=== PATIENT | male | born 1950 | race Caucasian/White ===

== ENCOUNTER 2016-06-11 | Outpatient (CLI) | payer MEDICARE | END 2016-06-11 01:38 | disposition critical access hospital (66) | CPT/HCPCS: A0425; A0427 ==

== ENCOUNTER 2016-06-11 02:13 | Observation (INO) | payer MEDICARE ==
[2016-06-11] MEDS ORDERED: PANTOPRAZOLE 80 MG in SODIUM CHLORIDE 0.9% 100ML 100 ML IV STA ×4 (02:29)
[2016-06-11] MEDS ORDERED: SODIUM CHLORIDE 0.9% 1,000 ML IV ONE (02:29)
[2016-06-11] MEDS ORDERED: PANTOPRAZOLE 40 MG VIAL ONE ×2 (02:37→03:33)
[2016-06-11] MEDS ORDERED: ACETAMINOPHEN 325 MG TABLET PO PRN (04:12)
[2016-06-11] MEDS ORDERED: HYDROcod/ACETAM 5/325 MG TABLET PO PRN (04:12)
[2016-06-11] MEDS ORDERED: ZOLPIDEM 5 MG TABLET PO PRN (04:12)
[2016-06-11] MEDS ORDERED: SODIUM CHLORIDE FLUSH 0.9% 10 ML SYRINGE IVP PRN (04:12)
[2016-06-11] MEDS ORDERED: HYDROcod/ACETAM 10 MG/325 MG TABLET PO PRN (04:12)
[2016-06-11] MEDS ORDERED: ONDANSETRON 4 MG/2 ML VIAL IVP PRN (04:12)
[2016-06-11] MEDS: SODIUM CHLORIDE 0.9% 1,000 ML IV SCH ×3 (04:52→21:11)
[2016-06-11] MEDS: SODIUM CHLORIDE FLUSH 0.9% 10 ML SYRINGE IVP SCH ×3 (04:52→21:11)
[2016-06-11] MEDS: SUCRALFATE 1 GM/10 ML UDC PO SCH ×4 (06:11→21:11)
[2016-06-11] MEDS: POLYETHYLENE GLYCOL 3350 17 GM PACKET PO SCH (08:53)
[2016-06-11] MEDS: PANTOPRAZOLE 40 MG VIAL IVP SCH ×2 (08:53→21:11)
[2016-06-11] MEDS: LISINOPRIL 5 MG TABLET PO SCH (13:00)
[2016-06-11] MEDS: SODIUM/POTASSIUM/MAG SULFATES 354 ML PREP KIT PO SCH (18:35)
[2016-06-12] MEDS: SODIUM/POTASSIUM/MAG SULFATES 354 ML PREP KIT PO SCH (04:40)
[2016-06-12] MEDS: SODIUM CHLORIDE FLUSH 0.9% 10 ML SYRINGE IVP SCH (06:17)
[2016-06-12] MEDS: SUCRALFATE 1 GM/10 ML UDC PO SCH (06:18)
[2016-06-12] MEDS ORDERED: fentaNYL 250 MCG/5 ML VIAL IVP ONE (07:33)
[2016-06-12] MEDS ORDERED: MIDAZOLAM 2 MG/2 ML VIAL IVP ONE (07:33)
[2016-06-12] MEDS ORDERED: LACTATED RINGERS 1,000 ML IV ONE (07:33)
[2016-06-12] MEDS: SODIUM CHLORIDE 0.9% 1,000 ML IV SCH ×2 (09:45→09:50)
[2016-06-12] MEDS: PANTOPRAZOLE 40 MG VIAL IVP SCH (09:48)
[2016-06-12] MEDS: LISINOPRIL 5 MG TABLET PO SCH (09:48)
[2016-06-12] MEDS: POLYETHYLENE GLYCOL 3350 17 GM PACKET PO SCH (09:49)
== END 2016-06-12 10:54 | disposition home or self-care (01) ==
PROC: 0DBP8ZX Excision of Rectum, Via Natural or Artificial Opening Endoscopic, Diagnostic (ICD-10-PCS; 2016-06-12)
PROC: 0DBC8ZX Excision of Ileocecal Valve, Via Natural or Artificial Opening Endoscopic, Diagnostic (ICD-10-PCS; principal; 2016-06-12 07:30)
DX: K92.1 Melena (principal); E86.0 Dehydration; K57.30 Diverticulosis of large intestine without perforation or abscess without bleeding; D12.0 Benign neoplasm of cecum; K62.1 Rectal polyp; K63.9 Disease of intestine, unspecified; K64.8 Other hemorrhoids; K64.4 Residual hemorrhoidal skin tags; Q27.33 Arteriovenous malformation of digestive system vessel; I10 Essential (primary) hypertension; R73.9 Hyperglycemia, unspecified; E66.9 Obesity, unspecified; Z79.82 Long term (current) use of aspirin; Z83.3 Family history of diabetes mellitus; Z68.29 Body mass index [BMI] 29.0-29.9, adult
CPT/HCPCS: 36415; 45380; 45384; 80053; 83036; 83690; 84484; 85025; 85610; 85730; 86850; 86900; 86901; 87339; 93005; 96361; 96374; 96376; 99283; 99285; A9270; G0378; J3010; J7120

== ENCOUNTER 2016-08-20 15:11 | Outpatient (CLI) | payer MEDICARE | END 2016-08-20 15:12 | disposition home or self-care (01) | DX: I10 Essential (primary) hypertension (principal) ==

== ENCOUNTER 2016-12-04 06:41 | Day surgery (SDC) | payer MEDICARE ==
[2016-12-04] MEDS ORDERED: LACTATED RINGERS 1,000 ML IV ONE (06:52)
[2016-12-04] MEDS ORDERED: MIDAZOLAM 2 MG/2 ML VIAL IVP ONE (08:04)
[2016-12-04] MEDS ORDERED: fentaNYL 100 MCG/2 ML VIAL IVP ONE (08:04)
--- NOTE | 2016-12-04 08:06 | HISTORY & PHYSICAL EXAMINATION ---
HPI - History of Present Illness HPI Comment/Other: Visit Type: Initial Consult Primary Provider: Munir Gaona MD History of Present Illness: Patient is here today for a repeat colonoscopy, 3 months.................................................... ................Arjun Jack MA October 28, 2016 2:18 PM Gonzalo is here in follow up for colonic polyps: inflammatory appearing polyp in sigmoid and SSA in cecum during colonoscopy in June. Past Medical History: Reviewed history from 07/23/2016 and no changes required: HTN diverticular disease with bleed colon polyp sessile serrated adenoma ileocecal valve Past Surgical History: Colonoscopy 06/17 Family History Summary: Reviewed history Last on 09/24/2016 and no changes required:10/28/2016 Mother (biol.) - Has Family History of Other Diseases - Ovarian Cancer - Entered On: 10/28/2016 General Comments - FH: Mother ovarian cancer Father DM Social History: Reviewed history from 07/02/2016 and no changes required: Patient is a former smoker.Quit 1986 Alcohol Use - yes, 5 glasses wine week Drug Use - yes, ocassional cannabis use Smoking History: Patient is a former smoker. , no children Semiretired youth program director Risk Factors: Smoked Tobacco Use: Former smoker Drug use: yes Alcohol use: yes Exercise: yes Type of Exercise: Run 6 miles per day Review of Systems See HPI Vital Signs: Patient Profile: 66 Years Old Male Height: 67 inches Weight: 177.5 pounds BMI: 27.80 O2 Sat: 97 % on room air Temp: 98 degrees F temporal Pulse rate: 72 / minute Pulse rhythm: irregular Resp: 16 per minute BP sittin / 102 Vitals Entered By: Arjun Jack MA (October 28, 2016 2:20 PM) Problems were reviewed with the patient during this visit. Medications were reviewed with the patient during this visit. Allergies were reviewed with the patient during this visit. No known allergies. Physical Exam General: well developed, well nourished, in no acute distress Lungs: clear bilaterally to A & P Heart: regular rate and rhythm, S1, S2 without murmurs, rubs, gallops, or clicks Abdomen: bowel sounds positive; abdomen soft and non-tender without masses, organomegaly, or hernias noted Pulses: pulses normal in all 4 extremities Extremities: no clubbing, cyanosis, edema, or deformity noted with normal full range of motion of all joints Cervical Nodes: no significant adenopathy Psych: alert and cooperative; normal mood and affect; normal attention span and concentration Impression & Recommendations: Problem # 1: Colon polyps Will proceed with colonoscopy PMH/PSH - Past Medical History Cardiovascular: positive: Hypertension Respiratory: positive: None Neuro: positive: None Endocrine/Autoimmune: positive: None GI: positive: None : positive: None HEENT: positive: None Psych: positive: None Musculoskeletal: positive: None Derm: positive: None MRSA Hx?: No - Past Surgical History General: positive: Colonoscopy Social & Family Hx - Social History Does the pt smoke?: No Smoking Status: Former smoker Does the pt drink ETOH?: No ETOH Use: Wine Does the pt have substance abuse?: No - POLST Patient has POLST: No Meds/Allgy - Home Medications Home Medications: Ambulatory Orders Medication Instructions Recorded Confirmed Aspirin 81 mg PO QPM 06/11/16 12/04/16 Alto-3/Dha/Epa/Fish Oil [Fish Oil 1 gm PO DAILY 06/11/16 12/04/16 1,000 mg Softgel] Vitamin E (Dl,Tocopheryl Acet) 400 units PO DAILY 06/11/16 12/04/16 [Vitamin E] Lisinopril [Zestril] 40 mg PO DAILY 12/04/16 12/04/16 - Allergies Allergies/Adverse Reactions: Allergies Allergy/AdvReac Type Severity Reaction Status Date / Time No Known Drug Allergies Allergy Verified 06/11/16 02:32 Exam - Vital Signs Vital Signs: Vital Signs x48h Temp Pulse Resp BP Pulse Ox 12/04/16 06:53 36 C L 77 16 171/111 H 99
[2016-12-04 09:01] VITALS: BP 138/85
== END 2016-12-04 06:42 | disposition home or self-care (01) ==
LOC: SDS 06:41
PROVIDERS: ATTEND Surgery
PROC: 0DBC8ZX Excision of Ileocecal Valve, Via Natural or Artificial Opening Endoscopic, Diagnostic (ICD-10-PCS; principal; 2016-12-04 08:15)
DX: Z86.010 Personal history of colon polyps (principal); K57.30 Diverticulosis of large intestine without perforation or abscess without bleeding; D12.0 Benign neoplasm of cecum; K64.4 Residual hemorrhoidal skin tags; I10 Essential (primary) hypertension; Z80.41 Family history of malignant neoplasm of ovary; Z87.891 Personal history of nicotine dependence; Z79.82 Long term (current) use of aspirin
CPT/HCPCS: 45380; J7120; 88305

== ENCOUNTER 2017-06-09 08:00 | Outpatient (CLI) | payer MEDICARE ==
[2017-06-09 19:31] LABS: BASOPHILS % (AUTO) 0.5 %; EOSINOPHILS # (AUTO) 0.1 10^3/uL (0.0-0.7); EOSINOPHILS % (AUTO) 0.8 %; LYMPHOCYTES # (AUTO) 1.8 10^3/uL (1.5-3.5); LYMPHOCYTES % (AUTO) 25.3 %; MEAN CORPUSCULAR HEMOGLOBIN 30.4 pg (27.0-31.0); MEAN CORPUSCULAR HGB CONC 33.3 g/dL (32.0-36.0); MEAN CORPUSCULAR VOLUME 91.2 fL (80.0-94.0); MEAN PLATELET VOLUME 9.3 fL (7.4-11.4); MONOCYTES # (AUTO) 0.5 10^3/uL (0.0-1.0); MONOCYTES % (AUTO) 6.7 %; NEUTROPHILS # (AUTO) 4.6 10^3/uL (1.5-6.6); NEUTROPHILS % (AUTO) 66.7 %; PLT - PLATELET COUNT 224 10^3/uL (130-450); RED BLOOD COUNT 5.26 10^6/uL (4.70-6.10); RED CELL DISTRIBUTION WIDTH 13.4 % (12.0-15.0)
[2017-06-09 20:15] LABS: ALBUMIN 4.6 g/dL (3.2-5.5); ALBUMIN/GLOBULIN RATIO 1.6 (1.0-2.2); BILIRUBIN,TOTAL 0.9 mg/dL (0.2-1.0); CALCIUM 9.3 mg/dL (8.5-10.3); TOTAL PROTEIN 7.5 g/dL (6.7-8.2)
== END 2017-06-09 08:01 | disposition home or self-care (01) ==
LOC: LAB.F 08:00
PROVIDERS: ATTEND Physician Assistant Medical
DX: E55.9 Vitamin D deficiency, unspecified (principal); Z51.81 Encounter for therapeutic drug level monitoring; Z79.899 Other long term (current) drug therapy
CPT/HCPCS: 36415; 80053; 82306; 85025

== ENCOUNTER 2018-08-25 08:00 | Outpatient (CLI) | payer MEDICARE ==
[2018-08-25 18:23] LABS: BASOPHILS % (AUTO) 0.4 %; EOSINOPHILS % (AUTO) 0.4 %; HGB - HEMOGLOBIN 16.4 g/dL (14.0-18.0); LYMPHOCYTES # (AUTO) 1.6 10^3/uL (1.5-3.5); LYMPHOCYTES % (AUTO) 17.6 %; MEAN CORPUSCULAR HGB CONC 33.9 g/dL (32.0-36.0); MEAN CORPUSCULAR VOLUME 91.6 fL (80.0-94.0); MEAN PLATELET VOLUME 8.6 fL (7.4-11.4); MONOCYTES # (AUTO) 0.5 10^3/uL (0.0-1.0); MONOCYTES % (AUTO) 5.5 %; NEUTROPHILS # (AUTO) 6.7 10^3/uL (1.5-6.6); NEUTROPHILS % (AUTO) 76.1 %; PLT - PLATELET COUNT 224 10^3/uL (130-450); RED BLOOD COUNT 5.28 10^6/uL (4.70-6.10); RED CELL DISTRIBUTION WIDTH 13.2 % (12.0-15.0); WHITE BLOOD COUNT 8.8 x10^3/uL (4.8-10.8)
[2018-08-25 18:38] LABS: ALBUMIN 4.6 g/dL (3.2-5.5); ALBUMIN/GLOBULIN RATIO 1.8 (1.0-2.2); BILIRUBIN,TOTAL 1.5 mg/dL (0.2-1.0); CALCIUM 9.5 mg/dL (8.5-10.3); TOTAL PROTEIN 7.2 g/dL (6.7-8.2)
== END 2018-08-25 23:59 | disposition home or self-care (01) ==
LOC: LAB.F 08:00
PROVIDERS: ATTEND Physician Assistant Medical
DX: I10 Essential (primary) hypertension (principal)
CPT/HCPCS: 36415; 80053; 85025